=== PATIENT | female | born 1960 | race Caucasian/White ===

== ENCOUNTER 2023-12-18 00:34 | Inpatient (IN) | payer MEDICARE, OTHER ==
[2023-12-18] MEDS ORDERED: Morphine 4 MG/ML VIAL ONE ×2 (01:34→05:22)
[2023-12-18] MEDS ORDERED: Ondansetron PF 4 MG/2 ML Vial IVP PRN (02:05)
[2023-12-18] MEDS ORDERED: Acetaminophen 500 MG TAB PO PRN (02:05)
[2023-12-18] MEDS ORDERED: Morphine 4 MG/ML VIAL SLOW IVP PRN (02:21)
[2023-12-18 03:13] LABS: #Basophils 0.04 10x3/uL (0.0-0.2); %Basophils 0.4 % (0.0-1.0); %Eosinophils 3.3 % (0.0-10.0); %Lymphocytes 29.4 % (21.0-51.0); %Monocytes 7.9 % (0.0-10.0); %Neutrophils 58.8 % (42.0-75.0); Hematocrit 38.7 % (36.0-47.0); Hemoglobin 12.6 g/dL (12.0-16.0); Mean Corpuscular HGB CONC 32.6 g/dL (32.0-36.0); Mean Corpuscular Hemoglobin 30.9 pg (27.0-31.0); Mean Corpuscular Volume 94.9 fL (78.0-98.0); Platelet Count 252 10x3/uL (130-400); RBC Distribution Width 12.4 % (11.5-14.5); Red Blood Cell (RBC) Count 4.08 mill/uL (4.20-5.40)
[2023-12-18 03:27] LABS: ALT (SGPT) 11 U/L (8-55); AST (SGOT) 17 U/L (5-34); Albumin 3.8 g/dL (3.4-4.8); Alkaline Phosphatase 59 U/L (40-110); Anion Gap 17 mmol/L (10-20); BUN (Urea Nitrogen) 14 mg/dL (9.8-20.1); Bilirubin, Total 0.9 mg/dL (0.2-1.2); Calc. Creatinine Clearance 0 mL/min (70-130); Calcium 9.1 mg/dL (7.8-10.44); Carbon Dioxide 20 mmol/L (23-31); Chloride 110 mmol/L (98-107); Estimated GFR 96; Globulin 2.8 g/dL (2.4-3.5); Glucose 94 mg/dL (80-115); PTT 22.9 sec (22.9-36.1); Potassium 3.7 mmol/L (3.5-5.1); Protein, Total 6.6 g/dL (5.8-8.1); Prothrombin Time 13.2 sec (12.0-14.7); Sodium 143 mmol/L (136-145)
[2023-12-18] MEDS ORDERED: Acetaminophen 325 MG TAB ONE (03:43)
[2023-12-18] MEDS: Acetaminophen 325 MG TAB PO SCH ×2 (03:48→13:47)
[2023-12-18] MEDS ORDERED: Morphine 2 MG/ML VIAL ONE (05:22)
[2023-12-18] MEDS: Morphine 4 MG/ML VIAL SLOW IVP PRN (05:30)
[2023-12-18 09:32] VITALS: BMI 29.0
[2023-12-18 13:50] LABS: #Basophils 0.03 10x3/uL (0.0-0.2); %Basophils 0.5 % (0.0-1.0); %Eosinophils 3.6 % (0.0-10.0); %Lymphocytes 32.1 % (21.0-51.0); %Monocytes 8.4 % (0.0-10.0); %Neutrophils 55.2 % (42.0-75.0); Hematocrit 35.9 % (36.0-47.0); Hemoglobin 11.7 g/dL (12.0-16.0); Mean Corpuscular HGB CONC 32.6 g/dL (32.0-36.0); Mean Corpuscular Hemoglobin 30.8 pg (27.0-31.0); Mean Corpuscular Volume 94.5 fL (78.0-98.0); Mean Platelet Volume 10.5 fL (7.4-10.4); Platelet Count 246 10x3/uL (130-400); RBC Distribution Width 12.6 % (11.5-14.5)
[2023-12-18 14:05] LABS: PTT 26.7 sec (22.9-36.1); Prothrombin Time 13.5 sec (12.0-14.7)
[2023-12-18 14:17] LABS: ALT (SGPT) 8 U/L (8-55); AST (SGOT) 15 U/L (5-34); Albumin 3.7 g/dL (3.4-4.8); Alkaline Phosphatase 60 U/L (40-110); Anion Gap 11 mmol/L (10-20); BUN (Urea Nitrogen) 14 mg/dL (9.8-20.1); Calc. Creatinine Clearance 101 mL/min (70-130); Calcium 9.5 mg/dL (7.8-10.44); Carbon Dioxide 25 mmol/L (23-31); Chloride 108 mmol/L (98-107); Estimated GFR 87; Globulin 2.6 g/dL (2.4-3.5); Glucose 102 mg/dL (80-115); Potassium 4.1 mmol/L (3.5-5.1); Protein, Total 6.3 g/dL (5.8-8.1); Sodium 140 mmol/L (136-145)
[2023-12-18 15:29] VITALS: BP 137/68; TEMP 97.8
== END 2023-12-18 17:29 | disposition home or self-care (01) | DRG 918 ==
LOC: ERS 00:34 → ERHOLD 02:05 → 2NO 02:10
PROVIDERS: ADMIT Emergency Medicine; ATTEND Emergency Medicine
DX: T63.091A Toxic effect of venom of other snake, accidental (unintentional), initial encounter (principal); Z79.899 Other long term (current) drug therapy; Y92.89 Other specified places as the place of occurrence of the external cause; W18.49XA Other slipping, tripping and stumbling without falling, initial encounter; Y93.01 Activity, walking, marching and hiking
CPT/HCPCS: 80053; 85025; 85384; 85610; 85730; 93005; 96374; J2270; J2272

== ENCOUNTER 2025-02-13 12:49 | Outpatient (CLI) | payer MEDICARE, OTHER ==
[~2025-02-13 12:49] MED LIST: Iopamidol 370 76% 100 ML VIAL ONE
[2025-02-13 13:47] LABS: Estimated GFR - POC 81.0
== END 2025-02-13 12:50 | disposition home or self-care (01) ==
LOC: CT 12:49
PROVIDERS: ATTEND Physician Assistant Medical
DX: D73.89 Other diseases of spleen (principal); R91.1 Solitary pulmonary nodule; J98.4 Other disorders of lung
CPT/HCPCS: 36415; 71260; 82565; Q9967

== ENCOUNTER 2025-06-01 09:51 | Outpatient (CLI) | payer MEDICARE, OTHER | END 2025-06-01 09:52 | disposition home or self-care (01) | LOC: CT 09:51 | PROVIDERS: ATTEND Internal Medicine Critical Care Medicine | DX: J06.9 Acute upper respiratory infection, unspecified (principal); R91.8 Other nonspecific abnormal finding of lung field | CPT/HCPCS: 71250 ==